=== PATIENT | male | born 1935 | race Caucasian/White ===

== ENCOUNTER → 2017-03-03 | Outpatient (REF) | payer MEDICARE, OTHER ==
[~2017-03-03] MED LIST: DIOV320T PO; MULTCAP PO; NORV5TAB PO; XARE20TA PO
== END ==
LOC: M LAB REF 13:27
PROVIDERS: ATTEND Internal Medicine
DX: E21.0 Primary hyperparathyroidism (principal); N18.3 Chronic kidney disease, stage 3 (moderate)

== ENCOUNTER → 2017-09-12 | Outpatient (REF) | payer MEDICARE, OTHER ==
[2017-09-12 14:33] LABS: PTH INTACT 41.5 PG/ML (18.5-88.0)
== END ==
LOC: M LAB REF 13:40
DX: E21.0 Primary hyperparathyroidism (principal); N18.3 Chronic kidney disease, stage 3 (moderate)
CPT/HCPCS: 83970

== ENCOUNTER 2018-01-09 12:29 | Emergency (ER) | payer MEDICARE, OTHER ==
[2018-01-09 14:06] LABS: BASO % 0.5 % (0.0-1.0); EOS # 0.1 10^3/uL (0.0-0.50); HEMATOCRIT 43.2 % (42.0-52.0); HEMOGLOBIN 14.6 g/dl (13.5-17.5); IMMATURE GRANULOCYTE % 0.3 % (0-3.0); LYMPH % 13.5 % (24.0-44.0); MEAN CORPUSCULAR HEMOGLOBIN 34.8 pg (27.0-33.0); MEAN CORPUSCULAR HGB CONC 33.8 g/dl (32.0-36.5); MEAN CORPUSCULAR VOLUME 103.1 fl (80.0-96.0); MONO # 0.7 10^3/uL (0.0-0.8); MONO % 9.2 % (0.0-5.0); NEUTROPHILS # 5.5 10^3/uL (1.8-7.7); NEUTROPHILS % 75.5 % (36.0-66.0); PLATELET COUNT, AUTOMATED 184 10^3/uL (150-450); RED BLOOD COUNT 4.19 10^6/uL (4.30-6.10); RED CELL DISTRIBUTION WIDTH 13.2 % (11.5-14.5); WHITE BLOOD COUNT 7.3 10^3/uL (4.0-10.0)
[2018-01-09 14:15] LABS: INR 1.54; PARTIAL THROMBOPLASTIN TIME 28.8 SECONDS (25.4-37.6); PROTHROMBIN TIME 18.8 SECONDS (12.1-14.4)
[2018-01-09] MEDS: NS 500 ML IV ×2 (14:16→16:15)
[2018-01-09 14:20] LABS: ALBUMIN 3.5 GM/DL (3.2-5.2); ALBUMIN/GLOBULIN RATIO 0.92 (1.00-1.93); ALKALINE PHOSPHATASE 60 U/L (45-117); ANION GAP 8 MEQ/L (8-16); AST/SGOT 19 U/L (7-37); BILIRUBIN,DIRECT 0.1 MG/DL (0.0-0.2); BILIRUBIN,TOTAL 0.6 MG/DL (0.2-1.0); BLOOD UREA NITROGEN 27 MG/DL (7-18); CARBON DIOXIDE LEVEL 24 MEQ/L (21-32); CHLORIDE LEVEL 108 MEQ/L (98-107); CPK CREATINE PHOSPHOKINASE 80 U/L (39-308); CREATININE FOR GFR 1.34 MG/DL (0.70-1.30); FREE T4 1.09 NG/DL (0.76-1.46); GLOMERULAR FILTRATION RATE 54.5 (>35); GLUCOSE, FASTING 96 MG/DL (70-100); LIPASE 231 U/L (73-393); POTASSIUM SERUM 3.9 MEQ/L (3.5-5.1); SODIUM LEVEL 140 MEQ/L (136-145); TOTAL PROTEIN 7.3 GM/DL (6.4-8.2); TROPONIN I < 0.02 NG/ML (< 0.10)
[2018-01-09 14:27] LABS: ALT/SGPT 24 U/L (12-78); CK-MB VALUE MASS 1.3 NG/ML (<3.6); MB/CK RELATIVE INDEX 1.62 (< OR =4)
== END 2018-01-09 18:12 | disposition home or self-care (01) ==
LOC: M ED 12:29
DX: R42 Dizziness and giddiness (principal)
CPT/HCPCS: 70551

== ENCOUNTER → 2018-03-18 | Outpatient (REF) | payer MEDICARE, OTHER ==
[2018-03-18 13:51] LABS: PTH INTACT 42.2 PG/ML (18.5-88.0)
== END ==
LOC: M LAB REF 12:27
DX: E21.0 Primary hyperparathyroidism (principal); N18.3 Chronic kidney disease, stage 3 (moderate)
CPT/HCPCS: 83970

== ENCOUNTER 2018-11-18 16:28 | Emergency (ER) | payer MEDICARE, OTHER ==
[~2018-11-18] VITALS: Ht 175.3 cm; Wt 88.2 kg
[~2018-11-18 16:28] MED LIST changes: +LEVO25TA5 PO
[2018-11-18] MEDS ORDERED: LEVO75TA4 (16:36)
[2018-11-18 18:34] LABS: BASO % 0.4 % (0.0-1.0); EOS % 0.2 % (0.0-3.0); HEMATOCRIT 40.5 % (42.0-52.0); HEMOGLOBIN 13.7 g/dl (13.5-17.5); LYMPH # 0.9 10^3/uL (1.5-4.5); LYMPH % 10.6 % (24.0-44.0); MEAN CORPUSCULAR HEMOGLOBIN 35.7 pg (27.0-33.0); MEAN CORPUSCULAR HGB CONC 33.8 g/dl (32.0-36.5); MEAN CORPUSCULAR VOLUME 105.5 fl (80.0-96.0); MONO # 0.4 10^3/uL (0.0-0.8); MONO % 4.9 % (0.0-5.0); NEUTROPHILS % 83.7 % (36.0-66.0); PLATELET COUNT, AUTOMATED 190 10^3/uL (150-450); RED BLOOD COUNT 3.84 10^6/uL (4.30-6.10); WHITE BLOOD COUNT 8.4 10^3/uL (4.0-10.0)
[2018-11-18 19:10] LABS: ALBUMIN 3.9 GM/DL (3.2-5.2); BILIRUBIN,TOTAL 0.6 MG/DL (0.2-1.0); CALCIUM LEVEL 9.4 MG/DL (8.8-10.2); CREATININE FOR GFR 1.51 MG/DL (0.70-1.30); GLOMERULAR FILTRATION RATE 47.3 (>35); TOTAL PROTEIN 7.3 GM/DL (6.4-8.2)
[2018-11-18] MEDS ORDERED: NS 1,000 ML IV ONE (19:30)
[2018-11-18] MEDS ORDERED: MECLIZINE 25 MG TABLET PO ONE (19:45)
[2018-11-18] MEDS ORDERED: LABETALOL HCL 100 MG/20 ML VIAL IV STA (20:16)
[2018-11-18] MEDS ORDERED: LABETALOL HCL 100 MG/20 ML VIAL As Ordered ONE (20:17)
--- NOTE | 2018-11-18 20:35 | REPVR ---
EXAM: CT Head Without Contrast EXAM DATE/TIME: 11/18/2018 8:03 PM CLINICAL HISTORY: 83 years old, male; Dizziness TECHNIQUE: Imaging protocol: Axial computed tomography images of the head without contrast. Radiation optimization: All CT scans at this facility use at least one of these dose optimization techniques: automated exposure control; mA and/or kV adjustment per patient size (includes targeted exams where dose is matched to clinical indication); or iterative reconstruction. COMPARISON: CT Head without contrast 01/09/2018 1:03 PM FINDINGS: Brain: Mild parenchymal atrophy consistent with age. No significant white matter disease. Ventricles: Normal. No ventriculomegaly. Bones/joints: Unremarkable. No acute fracture. Sinuses: Visualized sinuses are unremarkable. No fluid levels. Mastoid air cells: Visualized mastoid air cells are well aerated. No mastoid effusion. Soft tissues: Unremarkable. IMPRESSION: No acute findings. Electronically signed by: Narayan De Los Santos On 11/18/2018 20:35:22 PM
[2018-11-18] MEDS ORDERED: hydrALAZINE INJ 20 MG/ML VIAL As Ordered ONE (20:58)
[2018-11-18] MEDS ORDERED: hydrALAZINE INJ 20 MG/ML VIAL IV ONE (21:00)
[2018-11-18 21:01] VITALS: BP 240/98
[2018-11-18] MEDS ORDERED: niCARdipine IV 40 MG in APPROPRIATE DILUENT 1 EA IV SCH (22:15)
[2018-11-19 01:16] VITALS: BP 129/67
--- NOTE | 2018-11-19 07:50 | REP ---
Clinical: Dizziness. Comparison: 01/09/2018. Findings: Mediastinum and cardiac silhouette are stable and normal for portable technique. Lung sanchez demonstrate chronic stable interstitial changes. No obvious acute consolidation, effusion, or pneumothorax. Double structures intact. Impression: Chronic stable changes. No acute cardiopulmonary process appreciated. Electronically Signed by Jabari Rod MD 11/19/2018 07:40 A
--- NOTE | 2018-11-19 10:33 | ECGEPIP ---
[facility] - ED Test Date: 2018-11-18 Pat Name: DONNIE MCDANIEL Department: Room: - Gender: Male Hand Blocker: ALRY : 1935 Requested By: MIGDALIA Novak Order Number: [id number] Reading MD: Alexei Ma Measurements Intervals [place] Rate: 62 P: 30 GA: 192 QRS: 19 QRSD: 101 T: 41 QT: 433 QTc: 443 Interpretive Statements SINUS RHYTHM WITH OCCASIONAL SUPRAVENTRICULAR PREMATURE COMPLEXES SIMILAR TO 01/09/18 Electronically Signed on 11-19-2018 10:33:27 EDT by Alexei Ma
== END 2018-11-19 01:22 | disposition short-term general hospital (02) ==
LOC: M ED 16:28
DX: I16.1 Hypertensive emergency (principal); E03.9 Hypothyroidism, unspecified; Z86.711 Personal history of pulmonary embolism; Z79.899 Other long term (current) drug therapy; Z79.01 Long term (current) use of anticoagulants

== ENCOUNTER → 2018-12-03 | Outpatient (REF) | payer MEDICARE, OTHER ==
[~2018-12-03] MED LIST changes: +LEVO75TA4
== END ==
LOC: M LAB REF 16:46
PROVIDERS: ATTEND Internal Medicine
DX: D75.89 Other specified diseases of blood and blood-forming organs (principal)

== ENCOUNTER 2019-04-22 12:13 | Emergency (ER) | payer MEDICARE, OTHER ==
[~2019-04-22] VITALS: Ht 175.3 cm; Wt 85.0 kg
[2019-04-22] MEDS ORDERED: TACR0.1O (12:21)
[2019-04-22] MEDS ORDERED: DIOV160T6 (12:21)
[2019-04-22 13:22] LABS: BASO % 0.6 % (0.0-1.0); EOS # 0.2 10^3/uL (0.0-0.5); EOS % 3.2 % (0.0-3.0); HEMATOCRIT 46.4 % (42.0-52.0); LYMPH # 1.1 10^3/uL (1.5-5.0); LYMPH % 21.2 % (24.0-44.0); MEAN CORPUSCULAR HGB CONC 32.3 g/dl (32.0-36.5); MONO # 0.5 10^3/uL (0.0-0.8); NEUTROPHILS # 3.3 10^3/uL (1.5-8.5); NEUTROPHILS % 65.8 % (36.0-66.0); PLATELET COUNT, AUTOMATED 238 10^3/uL (150-450); RED BLOOD COUNT 4.55 10^6/uL (4.30-6.10)
[2019-04-22 13:41] LABS: ALBUMIN 3.5 GM/DL (3.2-5.2); BILIRUBIN,TOTAL 0.7 MG/DL (0.2-1.0); CALCIUM LEVEL 9.2 MG/DL (8.8-10.2); CREATININE FOR GFR 1.36 MG/DL (0.70-1.30); GLOMERULAR FILTRATION RATE 53.4 (>35); POTASSIUM SERUM 3.6 MEQ/L (3.5-5.1); TOTAL PROTEIN 6.6 GM/DL (6.4-8.2)
[2019-04-22] MEDS ORDERED: NS 1,000 ML IV ONE (15:15)
[2019-04-22] MEDS ORDERED: MECL-68 PO (17:06)
[2019-04-22 17:16] VITALS: BP 158/88
--- NOTE | 2019-04-22 18:15 | ECGEPIP ---
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
== END 2019-04-22 17:38 | disposition home or self-care (01) ==
LOC: M ED 12:13
DX: R42 Dizziness and giddiness (principal); I10 Essential (primary) hypertension; Z79.899 Other long term (current) drug therapy; Z79.01 Long term (current) use of anticoagulants

== ENCOUNTER 2019-12-13 13:10 | Emergency (ER) | payer MEDICARE, OTHER ==
[~2019-12-13 13:10] MED LIST changes: +DIOV160T6; +MECL1TAB31 PO; +TACR0.1O
[2019-12-13] MEDS ORDERED: MECLIZINE 25 MG TABLET ONE (14:24)
[2019-12-13] MEDS ORDERED: NIFEdipine 10 MG CAP ONE (14:37)
--- NOTE | 2020-01-14 14:03 | REP ---
CT OF THE BRAIN WITHOUT CONTRAST: HISTORY: Dizziness. COMPARISON: None. FINDINGS: Preliminary digital athletic events scorer radiograph is unremarkable. Bone window settings demonstrate vascular calcification. Bony calvarium is intact. The visualized paranasal sinuses are clear. No intraorbital abnormality is appreciated. On soft tissue window settings, the lateral, third and fourth ventricles are normal in size and position. Terry-white differentiation pattern is normal above and below the tentorium. There is no evidence of intracranial hemorrhage. No extra-axial fluid collection is seen. No mass, midline shift or infarction is appreciate. IMPRESSION: Mild generalized volume loss. Vascular calcification. Otherwise negative. No acute intracranial abnormality. MTDD
[2020-01-16 10:07] LABS: HEMATOCRIT 47.7 % (42.0-52.0); HEMOGLOBIN 15.6 g/dl (13.5-17.5); MEAN CORPUSCULAR HGB CONC 32.7 g/dl (32.0-36.5); MEAN CORPUSCULAR VOLUME 103.9 fl (80.0-96.0); PLATELET COUNT, AUTOMATED 175 10^3/uL (150-450); RED BLOOD COUNT 4.59 10^6/uL (4.30-6.10); WHITE BLOOD COUNT 5.3 10^3/uL (4.0-10.0)
[2020-01-16 10:09] LABS: INR 1.74; PROTHROMBIN TIME 20.8 SECONDS (11.8-14.0)
[2020-01-26 13:52] LABS: ALBUMIN 3.7 GM/DL (3.2-5.2); ALT/SGPT 25 U/L (12-78); BILIRUBIN,TOTAL 0.8 MG/DL (0.2-1.0); BLOOD UREA NITROGEN 15 MG/DL (7-18); CALCIUM LEVEL 9.1 MG/DL (8.8-10.2); CARBON DIOXIDE LEVEL 28 MEQ/L (21-32); CHLORIDE LEVEL 105 MEQ/L (98-107); CK-MB VALUE MASS 1.3 NG/ML (<3.6); CPK CREATINE PHOSPHOKINASE 78 U/L (39-308); CREATININE FOR GFR 1.44 MG/DL (0.70-1.30); ETHYL ALCOHOL (ETHANOL) < 0.003 % (0.000-0.010); GLOMERULAR FILTRATION RATE 49.9 (>35); GLUCOSE, FASTING 83 MG/DL (70-100); MB/CK RELATIVE INDEX 1.67 (< OR =4); POTASSIUM SERUM 4.1 MEQ/L (3.5-5.1); SODIUM LEVEL 140 MEQ/L (136-145); TROPONIN I < 0.02 NG/ML (< 0.10)
--- NOTE | 2020-02-04 15:59 | ECGEPIP ---
SINUS RHYTHM BORDERLINE FIRST AV BLOCK NONSPECIFIC ST & T CHANGE NO PRIOR DUE TO DOWNTIME SEE SCANNED DOWNTIME REPORT MTDD
== END 2019-12-13 17:35 | disposition home or self-care (01) ==
LOC: M ED 13:10
DX: H81.10 Benign paroxysmal vertigo, unspecified ear (principal); I10 Essential (primary) hypertension; Z79.899 Other long term (current) drug therapy; Z79.01 Long term (current) use of anticoagulants
CPT/HCPCS: 36415; 70450; 71045; 80053; 82550; 82553; 84484; 85027; 85610; 93005; 99284; G0480

== ENCOUNTER → 2020-05-05 | Outpatient (REF) | payer MEDICARE, OTHER | LOC: M LAB REF 09:25 | PROVIDERS: ATTEND Dermatology | DX: L90.5 Scar conditions and fibrosis of skin (principal) ==

== ENCOUNTER → 2020-06-09 | Outpatient (REF) | payer MEDICARE, OTHER ==
[2020-06-09 12:46] LABS: CALCIUM LEVEL 9.3 MG/DL (8.8-10.2); CREATININE FOR GFR 1.44 MG/DL (0.70-1.30); GLOMERULAR FILTRATION RATE 49.9 (>35); POTASSIUM SERUM 3.8 MEQ/L (3.5-5.1)
== END ==
LOC: M LAB REF 11:10
PROVIDERS: ATTEND Nurse Practitioner Adult Health
DX: N18.31 Chronic kidney disease, stage 3a (principal); R73.09 Other abnormal glucose

== ENCOUNTER → 2021-09-12 | Outpatient (CLI) | payer MEDICARE, OTHER | LOC: M WUC 11:51 | PROVIDERS: ATTEND Internal Medicine | DX: J44.9 Chronic obstructive pulmonary disease, unspecified (principal) ==

== ENCOUNTER → 2022-02-06 | Outpatient (CLI) | payer MEDICARE, OTHER ==
[~2022-02-06] MED LIST changes: -LEVO75TA4; +LEVO75TA4 PO; +XARE10TA PO
== END ==
LOC: M LABSMTC 10:25
PROVIDERS: ATTEND Anesthesiology
DX: Z01.812 Encounter for preprocedural laboratory examination (principal); Z11.52 Encounter for screening for COVID-19

== ENCOUNTER 2022-02-11 08:29 | Day surgery (SDC) | payer MEDICARE, OTHER ==
[~2022-02-11] VITALS: Ht 175.3 cm; Wt 86.2 kg
[~2022-02-11 08:29] MED LIST changes: +LIDOCAINE 1% SDV 5ML VIAL As Ordered ONE; +LR 1,000 ML IV SCH
[2022-02-11] MEDS: TETRACAINE 0.5% OPHTH SOLN 4ML OD SCH ×2 (09:43→10:03)
[2022-02-11] MEDS: CYCLOPENTOLATE 1% OPHTH SOLN 2 ML BTL OD SCH ×3 (09:43→10:06)
[2022-02-11] MEDS: FLURBIPROFEN 0.03% OPHTH SOLN 2.5 ML OD SCH ×3 (09:43→10:06)
[2022-02-11] MEDS: PHENYLEPHRINE 2.5% OPHTH SOL 2ML OD SCH ×3 (09:43→10:06)
[2022-02-11] MEDS ORDERED: MIDAZOLAM INJ 2MG/2ML VIAL (J2250 PER 1MG) As Ordered ONE (10:16)
[2022-02-11] MEDS ORDERED: fentaNYL 100 MCG/2 ML INJECTION As Ordered ONE (10:16)
[2022-02-11 12:20] VITALS: BP 146/81
== END 2022-02-11 12:36 | disposition home or self-care (01) ==
LOC: M SDC 08:29
PROVIDERS: ATTEND Ophthalmology
DX: H25.11 Age-related nuclear cataract, right eye (principal); I10 Essential (primary) hypertension; E03.9 Hypothyroidism, unspecified; Z79.899 Other long term (current) drug therapy; Z79.01 Long term (current) use of anticoagulants; Z79.890 Hormone replacement therapy
CPT/HCPCS: 66984; J2250; J3010; V2788

== ENCOUNTER → 2022-03-06 | Outpatient (CLI) | payer MEDICARE, OTHER ==
[~2022-03-06] MED LIST changes: -LIDOCAINE 1% SDV 5ML VIAL As Ordered ONE; -LR 1,000 ML IV SCH
== END ==
LOC: M LABSMTC 11:36
PROVIDERS: ATTEND Anesthesiology
DX: Z01.818 Encounter for other preprocedural examination (principal); Z11.52 Encounter for screening for COVID-19

== ENCOUNTER 2022-03-11 11:05 | Day surgery (SDC) | payer MEDICARE, OTHER ==
[~2022-03-11] VITALS: Ht 175.3 cm; Wt 89.0 kg
[~2022-03-11 11:05] MED LIST changes: +LIDOCAINE 1% 1ML PF SYRINGE (OR EYE CASES) As Ordered ONE; +LR 1,000 ML IV SCH
[2022-03-11] MEDS: TETRACAINE 0.5% OPHTH SOLN 4ML OS SCH (12:19)
[2022-03-11] MEDS: CYCLOPENTOLATE 1% OPHTH SOLN 2 ML BTL OS SCH ×3 (12:19→12:42)
[2022-03-11] MEDS: FLURBIPROFEN 0.03% OPHTH SOLN 2.5 ML OS SCH ×3 (12:20→12:42)
[2022-03-11] MEDS: PHENYLEPHRINE 2.5% OPHTH SOL 2ML OS SCH ×3 (12:20→12:42)
[2022-03-11] MEDS ORDERED: MIDAZOLAM INJ 2MG/2ML VIAL (J2250 PER 1MG) As Ordered ONE (13:03)
[2022-03-11] MEDS ORDERED: fentaNYL 100 MCG/2 ML INJECTION As Ordered ONE (13:03)
[2022-03-11 14:28] VITALS: BP 183/87
== END 2022-03-11 14:50 | disposition home or self-care (01) ==
LOC: M SDC 11:05
PROVIDERS: ATTEND Ophthalmology
DX: H25.12 Age-related nuclear cataract, left eye (principal); I10 Essential (primary) hypertension; E07.9 Disorder of thyroid, unspecified; Z79.899 Other long term (current) drug therapy; Z79.890 Hormone replacement therapy; Z79.01 Long term (current) use of anticoagulants
CPT/HCPCS: 66984; 92015; J2250; J3010; V2788

== ENCOUNTER 2022-11-07 15:43 | Observation (INO) | payer MEDICARE, OTHER ==
[~2022-11-07] VITALS: Ht 175.3 cm; Wt 87.7 kg
[~2022-11-07 15:43] MED LIST changes: -LIDOCAINE 1% 1ML PF SYRINGE (OR EYE CASES) As Ordered ONE; -LR 1,000 ML IV SCH
[2022-11-07] MEDS ORDERED: VALS1TAB68 PO ×2 (16:08→18:29)
[2022-11-07] MEDS ORDERED: ISOVUE-370 76% 100ML VIAL As Ordered ONE (16:25)
[2022-11-07] MEDS ORDERED: hydrALAZINE 20MG/ML 1ML VIAL IV ONE (16:25)
[2022-11-07 17:02] LABS: BASO % 0.7 % (0.0-1.0); EOS # 0.2 10^3/uL (0.0-0.5); EOS % 3.1 % (0.0-3.0); HEMATOCRIT 44.5 % (42.0-52.0); HEMOGLOBIN 14.9 g/dl (13.5-17.5); LYMPH # 1.5 10^3/uL (1.5-5.0); LYMPH % 24.3 % (24.0-44.0); MEAN CORPUSCULAR HEMOGLOBIN 33.9 pg (27.0-33.0); MEAN CORPUSCULAR HGB CONC 33.5 g/dl (32.0-36.5); MEAN CORPUSCULAR VOLUME 101.4 fl (80.0-96.0); MONO # 0.7 10^3/uL (0.0-0.8); MONO % 11.6 % (2.0-8.0); NEUTROPHILS # 3.6 10^3/uL (1.5-8.5); PLATELET COUNT, AUTOMATED 197 10^3/uL (150-450); RED BLOOD COUNT 4.39 10^6/uL (4.30-6.10); WHITE BLOOD COUNT 6.1 10^3/uL (4.0-10.0)
[2022-11-07 17:16] LABS: INR 1.02; PARTIAL THROMBOPLASTIN TIME 26.7 SECONDS (24.8-34.2); PROTHROMBIN TIME 13.6 SECONDS (12.5-14.5)
[2022-11-07 17:24] LABS: CALCIUM LEVEL 9.7 MG/DL (8.3-10.6); CK-MB VALUE MASS 1.5 NG/ML (<3.6); CREATININE FOR GFR 1.29 MG/DL (0.70-1.30); GLOMERULAR FILTRATION RATE 56.2 (>35); MB/CK RELATIVE INDEX 1.7 (< OR =4); POTASSIUM SERUM 3.9 MMOL/L (3.5-5.1)
[2022-11-07] MEDS ORDERED: RIVAROXABAN 10MG TAB (XARELTO) PO SCH (18:00)
[2022-11-07] MEDS ORDERED: MED REC IN PROGRESS XX SCH (18:25)
[2022-11-07] MEDS ORDERED: VALS1TAB67 PO (18:27)
[2022-11-07] MEDS ORDERED: HOME MED LIST COMPLETE! XX SCH (18:35)
[2022-11-07 19:22] LABS: RSV AMPLIFICATION NEGATIVE (NEGATIVE)
[2022-11-07] MEDS: ASPIRIN 81MG CHEW TABLET PO SCH (19:32)
[2022-11-07 20:16] VITALS: BP 155/77; TEMP 98.2; O2SAT 98
[2022-11-07] MEDS ORDERED: ATORVASTATIN 20 MG TAB PO SCH (21:00)
[2022-11-07] MEDS ORDERED: hydrALAZINE 20MG/ML 1ML VIAL IV PRN (22:00)
[2022-11-08] VITALS: BP 117/56; TEMP 96.8; O2SAT 97
[2022-11-08 03:56] LABS: HEMATOCRIT 42.4 % (42.0-52.0); HEMOGLOBIN 14.2 g/dl (13.5-17.5); MEAN CORPUSCULAR HEMOGLOBIN 33.6 pg (27.0-33.0); MEAN CORPUSCULAR HGB CONC 33.5 g/dl (32.0-36.5); MEAN CORPUSCULAR VOLUME 100.2 fl (80.0-96.0); PLATELET COUNT, AUTOMATED 189 10^3/uL (150-450); RED BLOOD COUNT 4.23 10^6/uL (4.30-6.10); WHITE BLOOD COUNT 5.3 10^3/uL (4.0-10.0)
[2022-11-08 04:00] VITALS: BP 163/77; TEMP 97.8; O2SAT 96
[2022-11-08 04:25] LABS: BLOOD UREA NITROGEN 15 MG/DL (9-23); CALCIUM LEVEL 8.8 MG/DL (8.3-10.6); CARBON DIOXIDE LEVEL 27 MMOL/L (20-31); CHLORIDE LEVEL 106 MMOL/L (98-107); CHOLESTEROL LEVEL 187 MG/DL (<200); CREATININE FOR GFR 1.21 MG/DL (0.70-1.30); GLOMERULAR FILTRATION RATE > 60.0 (>35); GLUCOSE, FASTING 102 MG/DL (74-106); HDL CHOLESTEROL 71.7 MG/DL (>40); LDL CHOLESTEROL 100.1 MG/DL (<100); NON-HDL-C 115.3 MG/DL; POTASSIUM SERUM 4.2 MMOL/L (3.5-5.1); SODIUM LEVEL 139 MMOL/L (136-145); TRIGLYCERIDES LEVEL 76 MG/DL (<150)
[2022-11-08] MEDS ORDERED: LEVOTHYROXINE 75MCG TABLET (0.075MG) PO SCH (06:00)
[2022-11-08 07:21] VITALS: BP 168/82; TEMP 97.8; O2SAT 97
[2022-11-08] MEDS ORDERED: VALSARTAN 80 MG TAB (DIOVAN) PO SCH (09:00)
[2022-11-08 09:21] VITALS: BP 168/82
[2022-11-08] MEDS: ASPIRIN 81MG CHEW TABLET PO SCH (09:21)
[2022-11-08 10:34] VITALS: BP 122/64
[2022-11-08] MEDS ORDERED: ATOR1TAB21 PO (11:20)
[2022-11-08] MEDS ORDERED: ASPI-424 PO (11:20)
[2022-11-08] MEDS ORDERED: VALS1TAB68 PO (11:20)
== END 2022-11-08 12:57 | disposition home or self-care (01) ==
LOC: M ED 15:43 → M ED INP 15:44 → ENRESERV 19:22 → M PCU 20:05
PROVIDERS: ADMIT Internal Medicine; ATTEND Internal Medicine
DX: I16.9 Hypertensive crisis, unspecified (principal); I67.2 Cerebral atherosclerosis; Z86.718 Personal history of other venous thrombosis and embolism; Z86.711 Personal history of pulmonary embolism; E89.0 Postprocedural hypothyroidism; N18.30 Chronic kidney disease, stage 3 unspecified; I12.9 Hypertensive chronic kidney disease with stage 1 through stage 4 chronic kidney disease, or unspecified chronic kidney disease; I44.0 Atrioventricular block, first degree; Z79.899 Other long term (current) drug therapy; Z79.01 Long term (current) use of anticoagulants; Z79.82 Long term (current) use of aspirin; Z79.890 Hormone replacement therapy
CPT/HCPCS: 36415; 70450; 70496; 70498; 70551; 71045; 80047; 80048; 80061; 82550; 82553; 84484; 85025; 85027; 85610; 85730; 87631; 93005; 93041; 94760; 96374; 99285; G0378; J0360; Q9967

== ENCOUNTER 2023-05-17 19:17 | Emergency (ER) | payer MEDICARE, OTHER ==
[~2023-05-17] VITALS: Ht 170.2 cm; Wt 81.5 kg
[~2023-05-17 19:17] MED LIST changes: +ASPI-424 PO; +ATOR1TAB21 PO; +MECL-209 PO; -MECL1TAB31 PO; +VALS1TAB67 PO; +VALS1TAB68 PO
[2023-05-17 19:55] LABS: BASO % 0.4 % (0.0-1.0); EOS # 0.3 10^3/uL (0.0-0.5); EOS % 2.4 % (0.0-3.0); HEMOGLOBIN 13.7 g/dl (13.5-17.5); LYMPH # 1.6 10^3/uL (1.5-5.0); LYMPH % 15.2 % (24.0-44.0); MEAN CORPUSCULAR HEMOGLOBIN 32.9 pg (27.0-33.0); MEAN CORPUSCULAR HGB CONC 33.4 g/dl (32.0-36.5); MEAN CORPUSCULAR VOLUME 98.3 fl (80.0-96.0); MONO % 9.6 % (2.0-8.0); NEUTROPHILS # 7.6 10^3/uL (1.5-8.5); NEUTROPHILS % 71.8 % (36.0-66.0); PLATELET COUNT, AUTOMATED 225 10^3/uL (150-450); RED BLOOD COUNT 4.17 10^6/uL (4.30-6.10); WHITE BLOOD COUNT 10.5 10^3/uL (4.0-10.0)
[2023-05-17 20:18] LABS: CK-MB VALUE MASS < 1.0 NG/ML (<3.6)
[2023-05-17 20:19] LABS: ALKALINE PHOSPHATASE 83 U/L (46-116); ALT/SGPT 13 U/L (7.0-40); AST/SGOT 20 U/L (<34); BILIRUBIN,DIRECT 0.5 MG/DL (<0.4); BILIRUBIN,TOTAL 1.1 MG/DL (0.3-1.2); BLOOD UREA NITROGEN 33 MG/DL (9-23); CALCIUM LEVEL 9.2 MG/DL (8.3-10.6); CARBON DIOXIDE LEVEL 23 MMOL/L (20-31); CHLORIDE LEVEL 107 MMOL/L (98-107); CPK CREATINE PHOSPHOKINASE 40 U/L (46-171); CREATININE FOR GFR 1.29 MG/DL (0.70-1.30); GLOMERULAR FILTRATION RATE 56.2 (>35); GLUCOSE, FASTING 138 MG/DL (74-106); POTASSIUM SERUM 4.1 MMOL/L (3.5-5.1); SODIUM LEVEL 141 MMOL/L (136-145); TOTAL PROTEIN 6.7 G/DL (5.7-8.2)
[2023-05-17 20:22] LABS: THYROID STIMULATING HORMONE 5.537 uIU/ML (0.55-4.78)
[2023-05-17] MEDS ORDERED: NS 1,000 ML IV ONE (21:05)
[2023-05-17] MEDS ORDERED: ISOVUE-370 76% 100ML VIAL As Ordered ONE (22:08)
[2023-05-17] MEDS ORDERED: HEPARIN SOD (PORCINE) 5000UNITS/ML 1ML VIAL/SYRINGE IV PRN (22:35)
[2023-05-17] MEDS ORDERED: HEPARIN DRIP 25,000 UNITS in IV 1 EA IV SCH (22:35)
[2023-05-17] MEDS ORDERED: HEPARIN SOD (PORCINE) 5000UNITS/ML 1ML VIAL/SYRINGE IV ONE (23:20)
[2023-05-17 23:33] LABS: CK-MB VALUE MASS < 1.0 NG/ML (<3.6)
[2023-05-17 23:34] LABS: CPK CREATINE PHOSPHOKINASE 46 U/L (46-171); MB/CK RELATIVE INDEX 2.17 (< OR =4)
[2023-05-18 06:20] LABS: CALCIUM LEVEL 8.5 MG/DL (8.3-10.6); CREATININE FOR GFR 1.22 MG/DL (0.70-1.30); POTASSIUM SERUM 4.8 MMOL/L (3.5-5.1)
[2023-05-18 06:23] LABS: FREE T4 1.29 NG/DL (0.89-1.76)
[2023-05-18] MEDS ORDERED: HEPARIN SOD (PORCINE) 5000UNITS/ML 1ML VIAL/SYRINGE IV ONE (13:20)
[2023-05-18 16:00] VITALS: BP 150/103
[2023-05-18 16:45] VITALS: O2SAT 98
[2023-05-18 17:00] VITALS: TEMP 97.2
== END 2023-05-18 17:28 | disposition short-term general hospital (02) ==
LOC: M ED 19:17 → EDBD 19:17 → M ED 05-18 17:28
DX: J96.01 Acute respiratory failure with hypoxia (principal); I26.09 Other pulmonary embolism with acute cor pulmonale; I82.411 Acute embolism and thrombosis of right femoral vein; I82.431 Acute embolism and thrombosis of right popliteal vein; I12.9 Hypertensive chronic kidney disease with stage 1 through stage 4 chronic kidney disease, or unspecified chronic kidney disease; Z86.718 Personal history of other venous thrombosis and embolism; Z79.899 Other long term (current) drug therapy; Z79.890 Hormone replacement therapy; Z11.52 Encounter for screening for COVID-19
CPT/HCPCS: 71045; 71275; 80048; 80076; 82550; 82553; 83605; 83880; 84439; 84443; 84484; 85025; 85730; 87040; 87077; 87186; 87486; 87581; 87633; 87798; 93005; 93970; 96374; 96376; 99285; Q9967

== ENCOUNTER → 2023-07-15 | Outpatient (REF) | payer MEDICARE, OTHER ==
[2023-07-15 17:43] LABS: URIC ACID 7.7 MG/DL (3.7-9.2)
[2023-07-15 17:45] LABS: PHOSPHORUS LEVEL 3.3 MG/DL (2.4-5.1)
[2023-07-15 18:00] LABS: PTH INTACT 47.4 PG/ML (18.5-88.0)
== END ==
LOC: M LAB REF 16:45
PROVIDERS: ATTEND Internal Medicine
DX: N18.30 Chronic kidney disease, stage 3 unspecified (principal)

== ENCOUNTER → 2023-11-03 | Outpatient (CLI) | payer MEDICARE, OTHER ==
[~2023-11-03] MED LIST changes: +PROHANCE 279.3MG/ML 15ML VIAL ONE; +PROHANCE 279.3MG/ML 5ML VIAL ONE
== END ==
LOC: M PLAIMG 09:28
PROVIDERS: ATTEND Internal Medicine
DX: R42 Dizziness and giddiness (principal)
CPT/HCPCS: 70544; 70549; 70553; A9576

== ENCOUNTER → 2024-01-30 | Outpatient (REF) | payer MEDICARE, OTHER ==
[~2024-01-30] MED LIST changes: -PROHANCE 279.3MG/ML 15ML VIAL ONE; -PROHANCE 279.3MG/ML 5ML VIAL ONE
[2024-01-30 19:16] LABS: PHOSPHORUS LEVEL 2.2 MG/DL (2.4-5.1); PTH INTACT 56.5 PG/ML (18.5-88.0)
== END ==
LOC: M LAB REF 17:12
PROVIDERS: ATTEND Internal Medicine
DX: N18.30 Chronic kidney disease, stage 3 unspecified (principal)

== ENCOUNTER → 2024-09-28 | Outpatient (REF) | payer MEDICARE, OTHER ==
[2024-09-28 13:16] LABS: URIC ACID 8.3 MG/DL (3.7-9.2)
[2024-09-28 13:20] LABS: PHOSPHORUS LEVEL 3.5 MG/DL (2.4-5.1)
[2024-09-28 13:21] LABS: PTH INTACT 51.4 PG/ML (18.5-88.0)
== END ==
LOC: M LAB REF 11:50
PROVIDERS: ATTEND Internal Medicine
DX: N18.30 Chronic kidney disease, stage 3 unspecified (principal)

== ENCOUNTER → 2025-04-04 | Outpatient (REF) | payer MEDICARE, OTHER ==
[2025-04-04 15:09] LABS: PHOSPHORUS LEVEL 3.4 MG/DL (2.4-5.1); PTH INTACT 45.7 PG/ML (18.5-88.0)
== END ==
LOC: M LAB REF 12:14
PROVIDERS: ATTEND Internal Medicine
DX: N18.30 Chronic kidney disease, stage 3 unspecified (principal)